=== PATIENT | female | born 1950 | race Caucasian/White ===

== ENCOUNTER 2016-10-20 04:25 | Emergency (ER) | payer OTHER, MEDICARE ==
[2016-10-20] MEDS ORDERED: IBUPROFEN 400 MG TABLET (FP) PO ONE ×2 (05:04→05:25)
[2016-10-20] MEDS ORDERED: predniSONE 20 MG TABLET (UD) PO ONE (05:04)
[2016-10-20] MEDS ORDERED: OXYCODONE/APAP 5/325MG COMBO TABLET PO ONE (05:04)
[2016-10-20] MEDS ORDERED: OXYCODONE/APAP 5/325MG COMBO TABLET ONE (05:25)
[2016-10-20] MEDS ORDERED: predniSONE 20 MG TABLET (UD) ONE (05:25)
[2016-10-20 05:55] VITALS: BP 175/73; PULSE 75; TEMP 98.7; BMI 27.3
--- NOTE | 2016-10-20 05:55 | PDOC ---
History of Present Illness - General Chief Complaint: Pain, Acute Stated Complaint: PAIN/RT HAND Time Seen by Provider: 10/20/16 04:44 History Source: Patient, Spouse Exam Limitations: No Limitations - History of Present Illness Initial Comments: 10/20/16 05:05 66yo Female patient presents to ED c/o atraumatic right hand pain/swelling which began yesterday. Patient reports similar symptoms in the past but not as severe. She denies CP, Abd pain, n/v/d, diff breathing, trauma, fall, injury, or any other complaints at this time. Occurred: reports: yesterday Severity: reports: moderate Upper Extremity Pain Location: right: wrist Method of Injury: reports: other (atraumatic) Modifying Factors: improves with: pain medication (Minimal relief.) Associated Symptoms: Decreased ROM Extremity Pain Location - Extremity Pain Location Extremity Pain Locations: right: hand Past History - Travel Traveled outside of the country in the last 30 days: No Close contact w/someone who was outside of country & ill: No - Past Medical History Allergies/Adverse Reactions: Allergies Allergy/AdvReac Type Severity Reaction Status Date / Time levofloxacin [From Levaquin] Allergy Mild Rash Verified 10/20/16 04:42 Penicillins Allergy Mild Rash Verified 10/20/16 04:42 Home Medications: Ambulatory Orders Glimepiride 4 mg PO BIDAC 02/20/14 Lovastatin 20 mg PO HS 02/20/14 Metformin HCl [Glucophage] 1,000 mg PO BIDAC 02/20/14 Acetaminophen [Tylenol .Regular Strength -] 650 mg PO Q6H PRN #0 tablet Amlodipine Besylate 5 mg PO HS 09/20/15 Insulin Detemir [Levemir Flextouch] 16 units SQ ACBK 09/20/15 Ibuprofen [Motrin -] 600 mg PO Q6H PRN #30 tablet 10/20/16 Oxycodone HCl/Acetaminophen [Percocet 5-325 mg Tablet] 1 tab PO Q6H PRN #12 tablet MDD 4 tabs 10/20/16 Prednisone [Deltasone -] 20 mg PO DAILY #4 tablet 10/20/16 Diabetes: Yes HTN: Yes Hypercholesterolemia: Yes Suicide Attempt (Hx): No Thyroid Disease: No - Immunization History Immunization Up to Date: Yes - Psycho/Social/Smoking Cessation Hx Anxiety: No Suicidal Ideation: No Smoking Status: No Smoking History: Never smoked Have you smoked in the past 12 months: No Number of Cigarettes Smoked Daily: 0 Hx Alcohol Use: No Drug/Substance Use Hx: No Substance Use Type: None Hx Substance Use Treatment: No Review of Systems - Review of Systems Able to Perform ROS?: Yes Is the patient limited Belarusian proficient: No Constitutional: No: Chills, Fever HEENTM: No: Blurred Vision, Double Vision Respiratory: No: Cough, Orthopnea, Shortness of Breath, SOB with Exertion Cardiac (ROS): No: Chest Pain, Edema, Palpitations ABD/GI: No: Constipated, Diarrhea, Nausea, Vomiting : No: Burning, Flank Pain, Hematuria Musculoskeletal: Yes: Joint Pain, Joint Swelling, Joint Stiffness. No: Back Pain, Muscle Pain, Muscle Weakness Integumentary: No: Bruising, Rash Neurological: No: Headache, Numbness, Seizure, Tingling, Tremors, Weakness, Ataxia Psychiatric: No: Anxiety, Depression All Other Systems: Reviewed and Negative *Physical Exam - Vital Signs Last Vital Signs Temp Pulse Resp BP Pulse Ox 98.7 F 75 18 175/73 100 10/20/16 04:44 10/20/16 04:44 10/20/16 04:44 10/20/16 04:44 10/20/16 04:44 - Physical Exam General Appearance: Yes: Nourished, Appropriately Dressed, Apparent Distress, Moderate Distress Neck: positive: Trachea midline, Supple Respiratory/Chest: positive: Lungs Clear, Normal Breath Sounds Cardiovascular: positive: Regular Rhythm, Regular Rate Lymphatic: negative: Adenopathy Musculoskeletal: positive: Normal Inspection. negative: CVA Tenderness Extremity: positive: Normal Capillary Refill, Other (Rt wrist/hand swelling and pain with decreased ROM. 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 intact, Fully Oriented, Alert, Normal Mood/ Affect, Normal Response *DC/Admit/Observation/Transfer Diagnosis at time of Disposition: Osteoarth NOS-up/arm - Discharge Dispostion Disposition: HOME Condition at time of disposition: Good Admit: No - Prescriptions Prescriptions: Prednisone [Deltasone -] 20 mg PO DAILY #4 tablet Ibuprofen [Motrin -] 600 mg PO Q6H PRN #30 tablet PRN Reason: Mild Pain Oxycodone HCl/Acetaminophen [Percocet 5-325 mg Tablet] 1 tab PO Q6H PRN #12 tablet MDD 4 tabs PRN Reason: Severe Pain - Referrals Referrals: Mago Buchanan MD [Primary Care Provider] - Juan Murphy MD [Staff Physician] - - Patient Instructions Printed Discharge Instructions: DI for Osteoarthritis Additional Instructions: FOLLOW UP WITH DR. MURPHY (ORTHOPEDIC). CALL TO SCHEDULE APPOINTMENT. TAKE MEDICATIONS PRESCRIBED. DO NOT DRIVE, DRINK ALCOHOL, OR OPERATE HEAVY MACHINERY WHILE TAKING PERCOCET. APPLY COLD COMPRESS TO AFFECTED AREA NEEDED. KEEP ARM IN SLING WHILE OUT OF BED TO DECREASE SWELLING. RETURN IF ANY CONCERNS FOR FURTHER EVALUATION. Print Language: SOUTH SUDANESE
== END 2016-10-20 05:43 | disposition home or self-care (01) ==
LOC: JER 04:25
DX: M19.031 Primary osteoarthritis, right wrist (principal)
CPT/HCPCS: 99281-25

== ENCOUNTER 2017-05-27 08:02 | Emergency (ER) | payer OTHER, MEDICARE ==
[2017-05-27 08:06] VITALS: BMI 28.3
--- NOTE | 2017-05-27 08:10 | PDOC ---
History of Present Illness - General Chief Complaint: Pain Stated Complaint: PAIN Time Seen by Provider: 05/27/17 08:09 - History of Present Illness Initial Comments: 05/27/17 08:10 66 yo female with history of chronic back pain, DM, HTN, DLP and vertigo presenting with 2 days of bilateral non radiating neck pain. Pain started in the middle of the day and was not provoked with any activity, has been getting worse, not relieved with tylenol or advil. Pain Management: Dr. Tin Gimenez ([phone]) Past History - Past Medical History Allergies/Adverse Reactions: Allergies Allergy/AdvReac Type Severity Reaction Status Date / Time levofloxacin [From Levaquin] Allergy Mild Rash Verified 05/27/17 08:06 Penicillins Allergy Mild Rash Verified 05/27/17 08:06 Home Medications: Ambulatory Orders Atorvastatin Ca [Lipitor] 10 mg PO HS 05/27/17 Canagliflozin [Invokana] 100 mg PO DAILY 05/27/17 Diazepam [Valium] 5 mg PO Q8H PRN #12 tablet MDD 20 05/27/17 Glimepiride [Amaryl -] 4 mg PO DAILY 05/27/17 Ibuprofen [Motrin -] 600 mg PO TID PRN #21 tablet 05/27/17 Insulin Lispro Protamin/Lispro [Humalog Mix 75-25 Kwikpen] 100 unit SQ BID 05/27 Metformin HCl [Glucophage] 1,000 mg PO BID 05/27/17 Valsartan/Hydrochlorothiazide [Valsartan-Hctz 160-25 mg Tab] 1 tab PO DAILY Diabetes: Yes HTN: Yes Hypercholesterolemia: Yes Suicide Attempt (Hx): No Thyroid Disease: No - Immunization History Immunization Up to Date: Yes - Psycho/Social/Smoking Cessation Hx Anxiety: No Suicidal Ideation: No Smoking Status: No Smoking History: Never smoked Have you smoked in the past 12 months: No Number of Cigarettes Smoked Daily: 0 Information on smoking cessation initiated: No Hx Alcohol Use: No Drug/Substance Use Hx: No Substance Use Type: None Hx Substance Use Treatment: No Review of Systems - Review of Systems Able to Perform ROS?: Yes Is the patient limited Hong Konger proficient: No Constitutional: No: Chills, Fever HEENTM: No: Eye Pain, Recent change in vision, Ear Pain, Hearing Loss Respiratory: No: Cough, Shortness of Breath Cardiac (ROS): No: Chest Pain, Palpitations ABD/GI: No: Constipated, Diarrhea, Nausea, Vomiting : No: Burning, Dysuria Musculoskeletal: Yes: Back Pain (chronic), Muscle Pain (Neck and shoulders), Neck Pain (w/o radiation) Neurological: No: Tingling *Physical Exam - Vital Signs Last Vital Signs Temp Pulse Resp BP Pulse Ox 98.8 F 87 18 160/72 99 05/27/17 08:03 05/27/17 08:03 05/27/17 08:03 05/27/17 08:03 05/27/17 08:03 - Physical Exam General Appearance: Yes: Nourished, Appropriately Dressed. No: Apparent Distress HEENT: positive: EOMI, MICHELA, Normal ENT Inspection Neck: positive: Tender (b/l posterior muscle tenderness from occiput down superior trapezuis), Rigid, Decreased range of motion (B/L Limited ROM, to left > to right), Tender lateral. negative: Lymphadenopathy (R), Lymphadenopathy (L) , Tender midline Respiratory/Chest: positive: Lungs Clear, Normal Breath Sounds. negative: Respiratory Distress Cardiovascular: positive: Regular Rhythm, Regular Rate, Systolic Murmur (2/6) Gastrointestinal/Abdominal: positive: Soft. negative: Tender, Distended, Guarding, Rebound Musculoskeletal: positive: Decreased Range of Motion (lateral neck mobility). 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 negative: Numbness, Sensory Deficit Medical Decision Making - Medical Decision Making 05/27/17 08:10 66 year old female with history of chronic back pain who is followed by a pain specialist presenting with two days of neck pain most consistent with muscle strain/spasm. 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 Gimenez who approved giving the patient toradol and Valium. His initial recommendation was flexaril but was not opposed to Valium or any other muscle relaxer. He is currently out of town but asked for the patient to call his office and make an appointment for Monday and supported a short prescription for PRN Valium. 05/27/17 08:57 Patient feeling some relief. Discharged to home with agreed followup with Dr. Gimenez on Monday *DC/Admit/Observation/Transfer Diagnosis at time of Disposition: Muscle strain - Discharge Dispostion Disposition: HOME Condition at time of disposition: Improved Admit: No - Prescriptions Prescriptions: Ibuprofen [Motrin -] 600 mg PO TID PRN #21 tablet PRN Reason: Pain Diazepam [Valium] 5 mg PO Q8H PRN #12 tablet MDD 20 PRN Reason: Pain - Referrals Referrals: Mago Buchanan MD [Primary Care Provider] - - Patient Instructions Printed Discharge Instructions: Muscle Strain Additional Instructions: Thank you for trusting us with your health care today. I hope you were happy with the care we provided. Your neck pain seems most consistent with muscle strain. Sometimes our muscles get strained even when we are unaware of an inciting incident. Often time the pain can be relieved with the use of over the counter pain medications. The use of lotions and patches that supply constant heat or Menthol are often effective as well. I have sent a prescriptions to your pharmacy that you can use until you are able to see your pain specialist next Monday. Be sure to take this and all medication as directed. It should only be taken if you are having pain. Do not drink alcohol while you are taking the Valium. In addition, you should not drive or operate heavy machinery while taking this medication as it may make you drowsy. As we discussed, you need to call Dr. Gimenez's office and make an appointment. Mention you were seen in the emergency department and they will be able to see you on Monday. You should also follow up with your PCP. If you should start to experience worsening pain that is not relieved with medication or start to experience any new of concerning symptoms, please return to the emergency department immediately. - Post Discharge Activity - Attestations Physician Attestion: 05/27/17 10:42 I, Dr. Dany Saavedra, attest that this document has been prepared under my direction and personally reviewed by me in its entirety. I further attest, that it accurately reflects all work, treatment, procedures and medical decision -making performed by me.
[2017-05-27] MEDS ORDERED: diazePAM 5 MG TABLET PO ONE (08:35)
[2017-05-27] MEDS ORDERED: KETOROLAC TROMETHAMINE 30 MG/1 ML VIAL IM ONE (08:35)
[2017-05-27] MEDS ORDERED: diazePAM 5 MG TABLET ONE (08:43)
[2017-05-27] MEDS ORDERED: KETOROLAC TROMETHAMINE 30 MG/1 ML VIAL ONE (08:44)
--- NOTE | 2017-05-27 09:09 | PDOC ---
Attending Attestation - Resident Resident Name: Dany Saavedra - ED Attending Attestation I have performed the following: I have examined & evaluated the patient, The case was reviewed & discussed with the resident, I agree w/resident's findings & plan, Exceptions are as noted - HPI HPI: 05/27/17 09:07 66 yo F w h/o DM , chronic back pain followed by dr. eduardo, here today with c/o upper neck pain. pain worse with head movement. no focal weakness or numbness. no trauma. has had for 2 days. no f/c no other complaints. no headache. - Physicial Exam PE: 05/27/17 09:08 awake alert lungs clear hear rrr no mrg.abd soft NT ND. neck no mildline cervical spine tendernss. pos paraspinal spasm and tenderness along trapezium, uper ext strength 5/5. med/ ulnar and rad. n. intact sensation intact. - Medical Decision Making 05/27/17 09:08 66 yo F neck strain/ spasm. normal nuero exam. plan nsaids and muscle relaxer.
[2017-05-27 11:06] VITALS: BP 155/74; PULSE 78; TEMP 98.6
== END 2017-05-27 11:03 | disposition home or self-care (01) ==
LOC: JER 08:02
PROC: 3E0233Z Introduction of Anti-inflammatory into Muscle, Percutaneous Approach (ICD-10-PCS; principal; 2017-05-27)
DX: S16.1XXA Strain of muscle, fascia and tendon at neck level, initial encounter (principal); I10 Essential (primary) hypertension; E11.9 Type 2 diabetes mellitus without complications; Z79.4 Long term (current) use of insulin; Z79.84 Long term (current) use of oral hypoglycemic drugs; E78.00 Pure hypercholesterolemia, unspecified; X58.XXXA Exposure to other specified factors, initial encounter; Y93.89 Activity, other specified
CPT/HCPCS: 96372; 99282-25

== ENCOUNTER 2017-07-26 18:05 | Emergency (ER) | payer OTHER, MEDICARE ==
[2017-07-26 18:22] VITALS: BMI 26.8
[2017-07-26] MEDS ORDERED: KETOROLAC TROMETHAMINE 60 MG/2 ML VIAL IM ONE (21:58)
[2017-07-26] MEDS ORDERED: diazePAM 5 MG TABLET PO ONE (21:58)
[2017-07-26] MEDS ORDERED: KETOROLAC TROMETHAMINE 60 MG/2 ML VIAL ONE (22:02)
[2017-07-26] MEDS ORDERED: diazePAM 5 MG TABLET ONE (22:03)
--- NOTE | 2017-07-26 23:06 | PDOC ---
History of Present Illness - General Chief Complaint: Pain Stated Complaint: PAIN Time Seen by Provider: 07/26/17 21:25 - History of Present Illness Initial Comments: 07/26/17 21:00 CHIEF COMPLAINT: neck pain HISTORY OF PRESENT ILLNESS: 67 yo F with PMH of DM, chronic back pain (seen by pain mgmt Dr. Lucas), presents today with neck discomfort, worse with lateral head movement. She denies any weakness or numbness, denies trauma or injury. She reports having this pain for "the last few days." She denies any loss of sensation, vertigo, headache, dizziness, chest pain, shortness of breath. No recent travel or sick contacts. PAST MEDICAL HISTORY: as per HPI FAMILY HISTORY: Denies SOCIAL HISTORY: Denies tobacco, alcohol, illicit drug use. ALLERGIES: Levofloxacin, PCN REVIEW OF SYSTEMS General/Constitutional: Denies fever or chills. Denies weakness. HEENT: Denies change in vision. Cardiovascular: Denies chest pain or shortness of breath. Respiratory: Denies cough, wheezing, or hemoptysis. Gastrointestinal: Denies nausea, vomiting, diarrhea. Genitourinary: Denies dysuria, frequency, or change in urination. Musculoskeletal: Neck pain, worsened with movement. Chronic lower back pain. Neurological: No loss of sensation, no headache, dizziness, vertigo, blurry vision. PHYSICAL EXAM General Appearance: Well-appearing, appropriately dressed. No apparent distress. HEENT: EOMI, PERRLA, normal ENT inspection, normal voice, TMs normal, pharynx normal. No conjunctival pallor. No photophobia, scleral icterus. Neck: No midline tenderness to servical spine. Reproducible tenderness to paraspinal muscles and left trapezius. Supple. rachea midline. No rigidity, carotid bruit, stridor, lymphadenopathy, or thyromegaly. Respiratory/Chest: Lungs CTAB. Cardiovascular: RRR. S1, S2. Gastrointestinal/Abdominal: Normal bowel sounds. Abdomen soft, non-distended. No tenderness or rebound tenderness. No organomegaly, pulsatile mass, guarding , hernia, hepatomegaly, splenomegaly. Musculoskeletal/Extremities: See neck. No midline tenderness to thoracic or lumbar spine. Sensory discrimination intact. FROM of all extremities, normal capillary refill. Pelvis Stable. No CVA tenderness. Integumentary: Appropriate color, dry, warm. 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 Fully oriented, alert. Appropriate mood/affect. Motor strength 5/5. No appreciable EOM palsy, facial droop or sensory deficit. Past History - Past Medical History Allergies/Adverse Reactions: Allergies Allergy/AdvReac Type Severity Reaction Status Date / Time levofloxacin [From Levaquin] Allergy Mild Rash Verified 07/26/17 18:22 Penicillins Allergy Mild Rash Verified 07/26/17 18:22 Home Medications: Ambulatory Orders Atorvastatin Ca [Lipitor] 10 mg PO HS 05/27/17 Canagliflozin [Invokana] 100 mg PO DAILY 05/27/17 Diazepam [Valium] 5 mg PO Q8H PRN #12 tablet MDD 20 05/27/17 Glimepiride [Amaryl -] 4 mg PO DAILY 05/27/17 Insulin Lispro Protamin/Lispro [Humalog Mix 75-25 Kwikpen] 100 unit SQ BID 05/27 Metformin HCl [Glucophage] 1,000 mg PO BID 05/27/17 Valsartan/Hydrochlorothiazide [Valsartan-Hctz 160-25 mg Tab] 1 tab PO DAILY Cyclobenzaprine HCl 5 mg PO HS #7 tablet 07/26/17 Diabetes: Yes HTN: Yes Hypercholesterolemia: Yes Thyroid Disease: No - Immunization History Immunization Up to Date: Yes - Suicide/Smoking/Psychosocial Hx Smoking Status: No Smoking History: Never smoked Have you smoked in the past 12 months: No Number of Cigarettes Smoked Daily: 0 Hx Alcohol Use: No Drug/Substance Use Hx: No Substance Use Type: None Hx Substance Use Treatment: No *Physical Exam - Vital Signs Last Vital Signs Temp Pulse Resp BP Pulse Ox 99.2 F 97 H 20 155/94 98 07/26/17 18:19 07/26/17 18:19 07/26/17 18:19 07/26/17 18:19 07/26/17 18:19 ED Treatment Course - Medications Given in the ED: ED Medications Discontinued Medications Generic Name Dose Route Start Last Admin Trade Name Freq PRN Reason Stop Dose Admin Diazepam 5 mg 07/26/17 21:58 07/26/17 22:09 Valium - PO 07/26/17 21:59 5 mg ONCE ONE Administration Ketorolac Tromethamine 60 mg 07/26/17 21:58 07/26/17 22:08 Toradol Injection - IM 07/26/17 21:59 60 mg ONCE ONE Administration Medical Decision Making - Medical Decision Making 07/26/17 23:39 67 yo F with PMH of DM, chronic back pain (seen by pain mgmt Dr. Lucas), presents today with neck discomfort, worse with lateral head movement. -60 mg Toradol Im -Valium Patient reassessed; states she is feeling "a little" better "but not really." However patient reports she wants to go home at this time and states she will follow up with neuro MD Andrews and orthopedics. Patient reports she just saw Dr. Andrews this week and had an MRI done of her lumbar spine this morning but has not received the results. Advised patient to take medications as prescribed and to f/u with neuro and ortho by the end of the week. Patient verbalized understandinga nd agrees to plan. *DC/Admit/Observation/Transfer Diagnosis at time of Disposition: Muscle strain - Discharge Dispostion Disposition: HOME Condition at time of disposition: Stable Admit: No (I, likely clear 1) - Prescriptions Prescriptions: Cyclobenzaprine HCl 5 mg PO HS #7 tablet - Referrals Referrals: Mago Buchanan MD [Primary Care Provider] - - Patient Instructions Printed Discharge Instructions: DI for Cervical Muscle Strain Additional Instructions: Please take medications as prescribed. As discussed, please continue following up with Dr. Andrews and see Dr. Murphy by the end of the week for further evaluation of your chronic neck pain. If you develop ANY headache, dizziness, blurry vision, shortness of breath, difficulty breathing, or any new or worsening symptoms, please return to the ER immediately.
[2017-07-26 23:21] VITALS: BP 98/73; PULSE 87; TEMP 98.9
== END 2017-07-26 23:44 | disposition home or self-care (01) ==
LOC: JER 18:05
PROC: 3E0233Z Introduction of Anti-inflammatory into Muscle, Percutaneous Approach (ICD-10-PCS; principal; 2017-07-26)
DX: S16.1XXA Strain of muscle, fascia and tendon at neck level, initial encounter (principal); M54.5 Low back pain; G89.29 Other chronic pain; I10 Essential (primary) hypertension; E11.9 Type 2 diabetes mellitus without complications; Z79.4 Long term (current) use of insulin; Z79.84 Long term (current) use of oral hypoglycemic drugs; E78.00 Pure hypercholesterolemia, unspecified; X58.XXXA Exposure to other specified factors, initial encounter; Y93.89 Activity, other specified; Y92.89 Other specified places as the place of occurrence of the external cause; Y99.8 Other external cause status
CPT/HCPCS: 99281-25

== ENCOUNTER 2017-10-10 14:45 | Emergency (ER) | payer OTHER, MEDICARE ==
[2017-10-10 14:51] VITALS: BP 142/59; PULSE 85; TEMP 99.8; BMI 29.5
--- NOTE | 2017-10-10 14:52 | PDOC ---
Rapid Medical Evaluation Time Seen by Provider: 10/10/17 14:47 Medical Evaluation: Allergies Allergy/AdvReac Type Severity Reaction Status Date / Time levofloxacin [From Levaquin] Allergy Mild Rash Verified 07/26/17 18:22 Penicillins Allergy Mild Rash Verified 07/26/17 18:22 10/10/17 14:50 I have performed a brief in-person evaluation of this patient. The patient presents with a chief complaint of: Recurrent head and neck pain since yesterday. No trauma. H/o DM, HTN, HLD Pertinent physical exam findings:Stable w/ tenderness over R sternocleidomastoid I have ordered the following:nothing The patient will proceed to the ED for further evaluation. Discharge Disposition - Referrals Referrals: Mago Buchanan MD [Primary Care Provider] - - Patient Instructions - Post Discharge Activity
[2017-10-10] MEDS ORDERED: KETOROLAC TROMETHAMINE 30 MG/1 ML VIAL IM ONE (16:27)
[2017-10-10] MEDS ORDERED: KETOROLAC TROMETHAMINE 30 MG/1 ML VIAL ONE (16:30)
--- NOTE | 2017-10-10 16:37 | PDOC ---
History of Present Illness - General Chief Complaint: Pain Stated Complaint: PAIN Time Seen by Provider: 10/10/17 14:47 History Source: Patient - History of Present Illness Initial Comments: 10/10/17 16:29 This is 67-year-old woman with past medical history of hypertension and diabetes presents emergency Department with intermittent right sided neck pain for 6 months. Patient states she's been evaluated multiple times and is been given "a shot" and some Valium which helps relieve the pain a little. Patient states the pain today started abruptly approximately 2:30 AM. She denies any trauma. PMD: Dewayne PMH: Hypertension, diabetes PSH: Denies Past History - Past Medical History Allergies/Adverse Reactions: Allergies Allergy/AdvReac Type Severity Reaction Status Date / Time levofloxacin [From Levaquin] Allergy Mild Rash Verified 10/10/17 14:51 Penicillins Allergy Mild Rash Verified 10/10/17 14:51 Home Medications: Ambulatory Orders Atorvastatin Ca [Lipitor] 10 mg PO HS 05/27/17 Canagliflozin [Invokana] 100 mg PO DAILY 05/27/17 Diazepam [Valium] 5 mg PO Q8H PRN #12 tablet MDD 20 05/27/17 Glimepiride [Amaryl -] 4 mg PO DAILY 05/27/17 Insulin Lispro Protamin/Lispro [Humalog Mix 75-25 Kwikpen] 100 unit SQ BID 05/27 Metformin HCl [Glucophage] 1,000 mg PO BID 05/27/17 Valsartan/Hydrochlorothiazide [Valsartan-Hctz 160-25 mg Tab] 1 tab PO DAILY Cyclobenzaprine HCl 5 mg PO HS #7 tablet 07/26/17 Methocarbamol [Robaxin -] 500 mg PO BID PRN #14 tablet 10/10/17 COPD: No Diabetes: Yes HTN: Yes Hypercholesterolemia: Yes Thyroid Disease: No - Immunization History Immunization Up to Date: Yes - Suicide/Smoking/Psychosocial Hx Smoking Status: No Smoking History: Never smoked Have you smoked in the past 12 months: No Number of Cigarettes Smoked Daily: 0 Information on smoking cessation initiated: No Hx Alcohol Use: No Drug/Substance Use Hx: No Substance Use Type: None Hx Substance Use Treatment: No Review of Systems - Review of Systems Able to Perform ROS?: Yes Is the patient limited Ukrainian proficient: No Constitutional: No: Symptoms Reported HEENTM: Yes: See HPI Respiratory: No: Symptoms reported Cardiac (ROS): No: Symptoms Reported ABD/GI: No: Symptoms Reported : No: Symptoms Reported Musculoskeletal: No: Symptoms Reported Integumentary: No: Symptoms Reported Neurological: No: Symptoms reported *Physical Exam - Vital Signs Last Vital Signs Temp Pulse Resp BP Pulse Ox 99.8 F H 85 16 142/59 98 10/10/17 14:48 10/10/17 14:48 10/10/17 14:48 10/10/17 14:48 10/10/17 14:48 - Physical Exam General Appearance: Yes: Appropriately Dressed. No: Apparent Distress HEENT: positive: Other (TTP at insertion site of SCM on the right side. Palpable muscle spasms noted extending into next.) Neck: positive: Trachea midline Respiratory/Chest: positive: Lungs Clear, Normal Breath Sounds. negative: Respiratory Distress Cardiovascular: positive: Regular Rhythm, Regular Rate Gastrointestinal/Abdominal: positive: Normal Bowel Sounds, Soft. negative: Tender Musculoskeletal: positive: Normal Inspection. negative: CVA Tenderness Extremity: positive: Normal Capillary Refill Integumentary: positive: Normal Color, Dry, Warm Neurologic: positive: marine gear keeper II-XII NML intact, Fully Oriented, Alert, Normal Mood/ Affect, Normal Response, Motor Strength 5/5 Medical Decision Making - Medical Decision Making 10/10/17 16:32 A/P: This is 67-year-old woman with past medical history of hypertension and diabetes presents emergency Department with intermittent right sided neck pain for 6 months. Patient states she's been evaluated multiple times and is been given "a shot" and some Valium which helps relieve the pain a little. Patient states the pain today started abruptly approximately 2:30 AM. She denies any trauma. Patient with tenderness to palpation to the insertion point of the right sternocleidomastoid. Spasms are appreciated from the insertion point extending down the neck to the clavicle. There is no erythema to the area. No abscesses appreciated. Pain worsens with rotation to the right. Pain is relieved with left lateral rotation. Patient has full sensation in the extremities 4. Strength 5 out of 5 in all extremities. Cranial nerves II through XII intact. Diagnosis: Muscle spasm I will give the patient 30 mg of Toradol IM now. Vision is taken 5 mg of Valium prior to arrival with minimal relief I will hold further benzo treatment this patient is a 30 taken Valium. 10/10/17 18:14 Pain mildly improved. I will give the patient another 5 mg of Valium now. I'll give the patient a prescription for Robaxin until she can follow-up with Dr. Buchanan. *DC/Admit/Observation/Transfer Diagnosis at time of Disposition: Muscle strain - Discharge Dispostion Disposition: HOME Condition at time of disposition: Stable Admit: No - Prescriptions Prescriptions: Methocarbamol [Robaxin -] 500 mg PO BID PRN #14 tablet PRN Reason: Pain - Referrals Referrals: Mago Buchanan MD [Primary Care Provider] - - Patient Instructions Additional Instructions: Take Robaxin twice a day as needed for neck pain. Do not drink or drive while taking this medication. Make an appointment with Dr. Buchanan for further evaluation of this chronic issue. Use of warm moist heat may help alleviate some of the pain you're feeling. Return to emergency department for inability to turn head, confusion, dizziness , or any other concerns. Thank you very much for choosing us to provide your emergent healthcare needs. - Post Discharge Activity
[2017-10-10] MEDS ORDERED: diazePAM 5 MG TABLET PO ONE (18:16)
== END 2017-10-10 18:28 | disposition home or self-care (01) ==
LOC: JERFT 14:45
PROC: 3E0233Z Introduction of Anti-inflammatory into Muscle, Percutaneous Approach (ICD-10-PCS; principal; 2017-10-10)
DX: S16.1XXA Strain of muscle, fascia and tendon at neck level, initial encounter (principal); I10 Essential (primary) hypertension; E11.9 Type 2 diabetes mellitus without complications; Z79.4 Long term (current) use of insulin; Z79.84 Long term (current) use of oral hypoglycemic drugs; E78.00 Pure hypercholesterolemia, unspecified; X58.XXXA Exposure to other specified factors, initial encounter; Y93.89 Activity, other specified; Y92.89 Other specified places as the place of occurrence of the external cause; Y99.8 Other external cause status
CPT/HCPCS: 96372; 99281-25

== ENCOUNTER 2017-10-12 01:56 | Emergency (ER) | payer OTHER, MEDICARE ==
[2017-10-12 02:32] VITALS: BP 143/76; PULSE 79; TEMP 98.6; BMI 29.0
--- NOTE | 2017-10-12 03:20 | PDOC ---
History of Present Illness - History of Present Illness Initial Comments: 10/12/17 03:33 The patient is a 67 year old female, with a significant past medical history of DM, chronic back pain (seen by pain mgmt Dr. Lucas), who presents to the emergency department with persistent posterior head and neck pain since being seen in the ED on Monday for similar complaint. The patient reportedly came into the ED on Monday for posterior head pain and neck pain, was discharged on robaxin, and while in the ED, the patient was given toradol IM. The patient also reportedly took 5mg valium in the ED on Monday without relief. She states neither the Toradol nor robaxin helped with her pain and she returns with the same pain. She states she took another dose of robaxin Monday evening without relief. She denies recent travels or sick contacts. She denies any trauma. She denies chest pain, shortness of breath, and dizziness. She denies fever, chills, nausea, vomit, diarrhea and constipation. She denies dysuria, frequency , urgency and hematuria. Allergies: levofloxacin and penicillin <Christine Erwin - Last Filed: 10/12/17 06:00> - General History Source: Patient <SindiDiallo bella - Last Filed: 10/17/17 20:11> - General Chief Complaint: Headache Stated Complaint: HEAD PAIN,NAUSEA Time Seen by Provider: 10/12/17 03:16 Past History <Christine Erwin - Last Filed: 10/12/17 06:00> - Past Medical History COPD: No Diabetes: Yes HTN: Yes Hypercholesterolemia: Yes Thyroid Disease: No - Immunization History Immunization Up to Date: Yes - Suicide/Smoking/Psychosocial Hx Smoking Status: No Smoking History: Never smoked Have you smoked in the past 12 months: No Number of Cigarettes Smoked Daily: 0 Information on smoking cessation initiated: No Hx Alcohol Use: No Drug/Substance Use Hx: No Substance Use Type: None Hx Substance Use Treatment: No <Diallo Crooks - Last Filed: 10/17/17 20:11> - Past Medical History Allergies/Adverse Reactions: Allergies Allergy/AdvReac Type Severity Reaction Status Date / Time levofloxacin [From Levaquin] Allergy Mild Rash Verified 10/12/17 02:29 Penicillins Allergy Mild Rash Verified 10/12/17 02:29 Home Medications: Ambulatory Orders Atorvastatin Ca [Lipitor] 10 mg PO HS 05/27/17 Canagliflozin [Invokana] 100 mg PO DAILY 05/27/17 Diazepam [Valium] 5 mg PO Q8H PRN #12 tablet MDD 20 05/27/17 Glimepiride [Amaryl -] 4 mg PO DAILY 05/27/17 Insulin Lispro Protamin/Lispro [Humalog Mix 75-25 Kwikpen] 100 unit SQ BID 05/27 Metformin HCl [Glucophage] 1,000 mg PO BID 05/27/17 Valsartan/Hydrochlorothiazide [Valsartan-Hctz 160-25 mg Tab] 1 tab PO DAILY Cyclobenzaprine HCl 5 mg PO HS #7 tablet 07/26/17 Ibuprofen 800 mg PO TID #30 tablet 10/12/17 Oxycodone HCl/Acetaminophen [Percocet 5-325 mg Tablet] 1 - 2 tab PO Q6H #20 tablet MDD 4 10/12/17 Review of Systems - Review of Systems Able to Perform ROS?: Yes Comments:: 10/12/17 03:36 CONSTITUTIONAL: Absent: fever, chills, diaphoresis, generalized weakness, malaise, loss of appetite HEENT: (+) posterior head pain. Absent: rhinorrhea, nasal congestion, throat pain, throat swelling, difficulty swallowing, mouth swelling, ear pain, eye pain, visual Changes CARDIOVASCULAR: Absent: chest pain, syncope, palpitations, irregular heart rate, lightheadedness , peripheral edema RESPIRATORY: Absent: cough, shortness of breath, dyspnea with exertion, orthopnea, wheezing, stridor, hemoptysis GASTROINTESTINAL: Absent: abdominal pain, abdominal distension, nausea, vomiting, diarrhea, constipation, melena, hematochezia GENITOURINARY: Absent: dysuria, frequency, urgency, hesitancy, hematuria, flank pain, genital pain MUSCULOSKELETAL: (+) neck pain. Absent: arthralgia, joint swelling SKIN: Absent: rash, itching, pallor HEMATOLOGIC/IMMUNOLOGIC: Absent: easy bleeding, easy bruising, lymphadenopathy, frequent infections ENDOCRINE: Absent: unexplained weight gain, unexplained weight loss, heat intolerance, cold intolerance NEUROLOGIC: Absent: headache, focal weakness or paresthesias, dizziness, unsteady gait, seizure, mental status changes, bladder or bowel incontinence PSYCHIATRIC: Absent: anxiety, depression, suicidal or homicidal ideation, hallucinations. <Christine Erwin - Last Filed: 10/12/17 06:00> *Physical Exam - Vital Signs Last Vital Signs Temp Pulse Resp BP Pulse Ox 98.6 F 79 14 143/76 98 10/12/17 02:29 10/12/17 02:29 10/12/17 02:29 10/12/17 02:29 10/12/17 02:29 - Physical Exam Comments: 10/12/17 03:37 GENERAL: Well developed, well nourished. Awake and alert. No acute distress. HEENT: Normocephalic, atraumatic. PERRLA, EOMI. No conjunctival pallor. Sclera are non- icteric. Moist mucous membranes. Oropharynx is clear. NECK: (+) moderate amount of cervical muscle spasm R>L, No raccoon or das signs. Supple. Full ROM. No JVD. Carotid pulses 2+ and symmetric, without bruits. No thyromegaly. No lymphadenopathy. CARDIOVASCULAR: Regular rate and rhythm. No murmurs, rubs, or gallops. Distal pulses are 2+ and symmetric. PULMONARY: No evidence of respiratory distress. Lungs clear to auscultation bilaterally. No wheezing, rales or rhonchi. ABDOMINAL: Soft. Non-tender. Non-distended. No rebound or guarding. No organomegaly. Normoactive bowel sounds. MUSCULOSKELETAL (+) moderate amount of cervical muscle spasm R>L. Normal range of motion at all joints. No bony deformities. No CVA tenderness. EXTREMITIES: No cyanosis. No clubbing. No edema. No calf tenderness. SKIN: Warm and dry. Normal capillary refill. No rashes. No jaundice. NEUROLOGICAL: Alert, awake, appropriate. Cranial nerves 2-12 intact. Normoreflexic in the upper and lower extremities. Normal speech. Toes are down-going bilaterally. Gait is normal without ataxia. PSYCHIATRIC: Cooperative. Good eye contact. Appropriate mood and affect. <Christine Erwin - Last Filed: 10/12/17 06:00> - Vital Signs Last Vital Signs Temp Pulse Resp BP Pulse Ox 98.6 F 79 14 143/76 98 10/12/17 02:29 10/12/17 02:29 10/12/17 02:29 10/12/17 02:29 10/12/17 02:29 <Diallo Crooks - Last Filed: 10/17/17 20:11> ED Treatment Course - RADIOLOGY Radiograph Interpretation: EXAM: CT CERVICAL SPINE without contrast HISTORY: Cervical spine pain COMPARISON: None. FINDINGS: Vertebral bodies appear normal with no fracture There is some reversal of the normal lordotic curvature centered at the level of C4-C7. There is a posterior osteophyte and bony bar at the level of C5-C6 Airway is intact Soft Tissues are normal Pulmonary apices are normal IMPRESSION: Degenerative changes in the cervical spine with no fracture Andrews Simpson MD 10/12/2017 05:25 EST EXAM: CT HEAD without contrast HISTORY: Dizziness COMPARISON: None. TECHNIQUE: CT Head with serial axial images extending from the vertex to the base of skull was performed without vascular contrast. FINDINGS: Brain parenchyma is normal in attenuation with no mass or hematoma. There is no midline shift. Goldberg and white matter differentiation is normal. There is some lucency in the periventricular white matter Ventricles are mildly prominent. Sulci and extra-axial CSF spaces are mildly prominent. Intracranial vascular structures are normal in attenuation. There is no calvarial fracture. Paranasal sinuses are normally aerated. There is a mucous retention cyst in the right maxillarysinus IMPRESSION: No intracranial mass or bleed, Chronic appearing involutional changes of aging Andrews Simpson MD 10/12/2017 05:23 EST <Christine Erwin - Last Filed: 10/12/17 06:00> Medical Decision Making - Medical Decision Making 10/17/17 20:11 Dr. Crooks: The scribe's documentation has been prepared under my direction and personally reviewed by me in its entirery. I confirm that the note above accurately reflects all work, treatment, procedures, and medical decision making performed by me. <Diallo Crooks - Last Filed: 10/17/17 20:11> *DC/Admit/Observation/Transfer - Attestations Scribe Attestion: 10/12/17 03:38 Documentation prepared by Christine Erwin, acting as medical program specialist for Diallo Crooks DO <Christine Erwin - Last Filed: 10/12/17 06:00> - Discharge Dispostion Admit: No <Diallo Crooks - Last Filed: 10/17/17 20:11> Diagnosis at time of Disposition: Muscle strain, Cervical sprain - Discharge Dispostion Disposition: HOME Condition at time of disposition: Stable - Prescriptions Prescriptions: Ibuprofen 800 mg PO TID #30 tablet Oxycodone HCl/Acetaminophen [Percocet 5-325 mg Tablet] 1 - 2 tab PO Q6H #20 tablet MDD 4 - Patient Instructions Printed Discharge Instructions: DI for Neck Pain Additional Instructions: Please follow up with your doctor for MRI to be scheduled. Avoid alcohol when taking Percocet. Return if any problems.
[2017-10-12] MEDS ORDERED: morphine CARPU-JECT 2 MG/1 ML DISP.SYRIN IM ONE (03:28)
[2017-10-12] MEDS ORDERED: ONDANSETRON *ODT* 4 MG TABLET SL ONE (03:28)
[2017-10-12] MEDS ORDERED: ONDANSETRON *ODT* 4 MG TABLET ONE (03:40)
[2017-10-12] MEDS ORDERED: morphine CARPU-JECT 10 MG/1 ML DISP.SYRIN ONE (03:41)
== END 2017-10-12 06:13 | disposition home or self-care (01) ==
LOC: JER 01:56
PROC: 3E023NZ Introduction of Analgesics, Hypnotics, Sedatives into Muscle, Percutaneous Approach (ICD-10-PCS; principal; 2017-10-12)
DX: S16.1XXA Strain of muscle, fascia and tendon at neck level, initial encounter (principal); M62.838 Other muscle spasm; I10 Essential (primary) hypertension; E11.9 Type 2 diabetes mellitus without complications; Z79.4 Long term (current) use of insulin; Z79.84 Long term (current) use of oral hypoglycemic drugs; E78.00 Pure hypercholesterolemia, unspecified
CPT/HCPCS: 70450-TC; 72125-TC; 99281-25; 99282-25

== ENCOUNTER 2018-06-04 07:05 | Emergency (ER) | payer OTHER, MEDICARE ==
[2018-06-04 07:13] VITALS: BMI 31.1
[2018-06-04] MEDS ORDERED: IBUPROFEN 600 MG TABLET (FP) PO ONE ×2 (08:41→08:46)
--- NOTE | 2018-06-04 08:41 | PDOC ---
History of Present Illness - History of Present Illness Initial Comments: The patient is a 67 year old female, with a significant past medical history of DM, HTN, chronic back pain, who presents to the emergency department with LLE pain since last night when trying to go to bed. She states that her pain begins at her left mid- thigh and radiates down to her knee. She states that she has had leg pain in the past but this is different. She describes it more as a crampy, constant, uncomfortable. She states that around 5 years ago she saw Dr. Murphy in the past who told her she will need hip replacement surgery (L worse than R) but due to change in insurance she was not able to schedule and see the surgery through. She states that the pain kept her up all night as she was not able to find a comfortable position to lay down. She states that she took 2 advil at 3 am with no relief. Denies recent injury. Denies any head or neck pain. Denies recent changes in meds or hospitalizations. PCP: Brdiget Buchanan Pain management doctor: Dr. Lucas. Surgical Hx: denies <Marisa Larson - Last Filed: 06/04/18 12:42> - General History Source: Patient Exam Limitations: No Limitations <Lyudmila Acosta - Last Filed: 06/04/18 13:02> - General Chief Complaint: Pain Stated Complaint: LEFT LEG PAIN Time Seen by Provider: 06/04/18 08:02 Past History <Marisa Larson - Last Filed: 06/04/18 12:42> - Past Medical History COPD: No DVT: No Diabetes: Yes HTN: Yes Hypercholesterolemia: Yes Thyroid Disease: No - Immunization History Immunization Up to Date: Yes - Suicide/Smoking/Psychosocial Hx Smoking Status: No Smoking History: Never smoked Have you smoked in the past 12 months: No Number of Cigarettes Smoked Daily: 0 Information on smoking cessation initiated: No Hx Alcohol Use: No Drug/Substance Use Hx: No Substance Use Type: None Hx Substance Use Treatment: No <Lyudmila Acosta - Last Filed: 06/04/18 13:02> - Past Medical History Allergies/Adverse Reactions: Allergies Allergy/AdvReac Type Severity Reaction Status Date / Time levofloxacin [From Levaquin] Allergy Mild Rash Verified 06/04/18 07:11 Penicillins Allergy Mild Rash Verified 06/04/18 07:11 Home Medications: Ambulatory Orders Atorvastatin Ca [Lipitor] 10 mg PO HS 05/27/17 Canagliflozin [Invokana] 100 mg PO DAILY 05/27/17 Diazepam [Valium] 5 mg PO Q8H PRN #12 tablet MDD 20 05/27/17 Glimepiride [Amaryl -] 4 mg PO DAILY 05/27/17 Insulin Lispro Protamin/Lispro [Humalog Mix 75-25 Kwikpen] 100 unit SQ BID 05/27 Metformin HCl [Glucophage] 1,000 mg PO BID 05/27/17 Valsartan/Hydrochlorothiazide [Valsartan-Hctz 160-25 mg Tab] 1 tab PO DAILY Ibuprofen 800 mg PO TID #30 tablet 10/12/17 Acetaminophen W/ Codeine #3 [Tylenol # 3 -] 1 tab PO BID PRN #10 tablet MDD 2 Lidocaine 5% Patch [Lidoderm Patch -] 1 patch TP DAILY PRN #30 patch 06/04/18 Methocarbamol [Robaxin -] 500 mg PO TID PRN #30 tablet 06/04/18 Review of Systems - Review of Systems Comments:: GENERAL/CONSTITUTIONAL: No: fever, chills, weakness, loss of appetite. HEAD, EYES, EARS, NOSE AND THROAT: No: change in vision, ear pain, discharge, sore throat, throat swelling. CARDIOVASCULAR: No: chest pain, lightheadedness, palpitations, syncope RESPIRATORY: No: cough, shortness of breath, wheezing, hemoptysis, stridor. GASTROINTESTINAL: No: nausea, vomiting, abdominal cramping, diarrhea, rectal bleeding, constipation. GENITOURINARY: No: dysuria, hematuria, frequency, urgency, flank pain. MUSCULOSKELETAL: +LLE pain from mid-thigh to knee. No: back pain, neck pain, muscle swelling. SKIN: No: lesions, pallor, rash or easy bruising. NEUROLOGIC: No: headache, vertigo, paresthesias, weakness ENDOCRINE: No: unexplained weight gain or loss HEMATOLOGIC/LYMPHATIC: No: anemia, easy bleeding, swelling nodes <Marisa Larson - Last Filed: 06/04/18 12:42> *Physical Exam - Vital Signs Last Vital Signs Temp Pulse Resp BP Pulse Ox 98.0 F 77 18 142/72 100 06/04/18 07:11 06/04/18 07:11 06/04/18 07:11 06/04/18 07:11 06/04/18 07:11 - Physical Exam Comments: GENERAL: The patient is in no acute distress. HEAD: Normal with no signs of trauma. EYES: PERRLA, EOMI, sclera anicteric, conjunctiva clear. ENT: Ears normal, nares patent, oropharynx clear without exudates. Moist mucous membranes. NECK: Normal range of motion, supple without lymphadenopathy, JVD, or masses. LUNGS: Breath sounds equal, clear to auscultation bilaterally. No wheezes, and no crackles. HEART:Regular rate and rhythm, normal S1 and S2 without murmur, rub or gallop. ABDOMEN: Soft, nontender, normoactive bowel sounds. No guarding, no rebound. BACK: No midline lumbar tenderness, no paraspinal lumbar tenderness. EXTREMITIES: Normal left hip, knee, ankle flexion. Thigh is soft, tenderness to palpation at mid-thigh. No edema. No clubbing or cyanosis. No erythema. NEUROLOGICAL: Cranial nerves II through XII grossly intact. Normal speech. No focal neurological deficits. MUSCULOSKELETAL: Back nontender to palpation, no CVA tenderness SKIN: Warm, Dry, normal turgor, no rashes or lesions noted. <Marisa Larson - Last Filed: 06/04/18 12:42> - Vital Signs Last Vital Signs Temp Pulse Resp BP Pulse Ox 98.0 F 77 18 142/72 100 06/04/18 07:11 06/04/18 07:11 06/04/18 07:11 06/04/18 07:11 06/04/18 07:11 <Lyudmila Acosta - Last Filed: 06/04/18 13:02> ED Treatment Course - RADIOLOGY Radiograph Interpretation: Hip/Pelvis X-ray Impression: Loss of bone density, Degenerative changes. Vascular calcification Chondrocalcinosis left knee. Reported By: Prabhakar Silva MD 06/04/1851 Femur x-ray Impression: No acute left femur pathology Reported By: Prabhakar Silva MD 06/04/1885 CT Lumbar Spine: Impression: Mild disc bulge and posterior spur formation as well as moderate bilateral facet hypertrophy at L2-L3, L3-L4 and L5-S1 level. Marked degenerative disc disease a L4-L5 level with grade 1 anterolisthesis of L4 over L5, approximately 12 mm and bilateral spondylolysis of the pars interarticularis. Mild broad-based disc bulge and significant bilateral facet and ligamentum hypertrophy resulting in moderately severe degenerative central spinal canal stenosis. Correlation with MRI of the lumbar spine would be helpful for further and better evaluation. Reported By: Anastasiya Causey MD 06/04/18 1233 - Medications Given in the ED: ED Medications Discontinued Medications Generic Name Dose Route Start Last Admin Trade Name Yisesl PRN Reason Stop Dose Admin Ibuprofen 600 mg 06/04/18 08:41 06/04/18 08:51 Motrin - PO 06/04/18 08:42 600 mg ONCE ONE Administration Methocarbamol 500 mg 06/04/18 08:53 06/04/18 08:51 Robaxin - PO 06/04/18 08:54 500 mg ONCE ONE Administration - Consult/PCP Time Called: 12:40 (Nathalyd Juan) <Marisa Larson - Last Filed: 06/04/18 12:42> Medical Decision Making - Medical Decision Making 06/04/18 09:16 Ms Mendez is a 67 yo F presenting to the ER with a complaint of left pain Symptoms began last night Pt unable to sleep due to pain Pt denies back pain No fevers or chills No trauma to the back or leg Pt has pain mostly in the thigh She reports a prior history of severe hip abnormality prompting Dr Murphy to say that patient should had hip replacement Pt has no pain on palpation of the midline spine Pt has not hip tenderness She is able to range at the hip and the knees her thigh is soft and not swollen No calf swelling noted Pt is ambulatory She states actually, her pain is present when she lays down will do: Pain medication - Motrin and robaxin Xrays Re assess 06/04/18 12:45 CT demonstrates Mild disc bulge and posterior spur formation moderate bilateral facet hypertrophy L2-L3, L3-L4, L5-S1 Disc bulge and bilateral facet and ligamentum hypertrophy --> severe spinal canal stenosis 06/04/18 12:51 call placed to pt PMD and pain management <Lyudmila Acosta - Last Filed: 06/04/18 13:02> *DC/Admit/Observation/Transfer - Attestations Scribe Attestion: 06/04/18 09:36 Documentation prepared by Marisa Larson, acting as ophthalmic medical assistant for Lyudmila Acosta MD. <Marisa Larson - Last Filed: 06/04/18 12:42> - Discharge Dispostion Decision to Admit order: No <Lyudmila Acosta - Last Filed: 06/04/18 13:02> Diagnosis at time of Disposition: Spinal stenosis of lumbar region at multiple levels - Discharge Dispostion Disposition: HOME Condition at time of disposition: Stable - Referrals Referrals: Mago Buchanan MD [Primary Care Provider] - Tin Lucas MD [Staff Physician] - - Patient Instructions Printed Discharge Instructions: DI for Spinal Stenosis, DI for Arthritis Additional Instructions: Thank you for coming in to the ER today Please be sure to follow up with Dr Buchanan Please also follow up with Dr. Lucas please take pain medications as prescribed Please return to the Er for any other concerns or complaints - Post Discharge Activity
[2018-06-04] MEDS ORDERED: METHOCARBAMOL 500 MG TABLET ONE (08:45)
[2018-06-04] MEDS ORDERED: METHOCARBAMOL 500 MG TABLET PO ONE (08:53)
--- NOTE | 2018-06-04 12:06 | PDOC ---
History of Present Illness - General Chief Complaint: Pain Stated Complaint: LEFT LEG PAIN Time Seen by Provider: 06/04/18 08:02 Past History - Past Medical History Allergies/Adverse Reactions: Allergies Allergy/AdvReac Type Severity Reaction Status Date / Time levofloxacin [From Levaquin] Allergy Mild Rash Verified 06/04/18 07:11 Penicillins Allergy Mild Rash Verified 06/04/18 07:11 Home Medications: Ambulatory Orders Atorvastatin Ca [Lipitor] 10 mg PO HS 05/27/17 Canagliflozin [Invokana] 100 mg PO DAILY 05/27/17 Diazepam [Valium] 5 mg PO Q8H PRN #12 tablet MDD 20 05/27/17 Glimepiride [Amaryl -] 4 mg PO DAILY 05/27/17 Insulin Lispro Protamin/Lispro [Humalog Mix 75-25 Kwikpen] 100 unit SQ BID 05/27 Metformin HCl [Glucophage] 1,000 mg PO BID 05/27/17 Valsartan/Hydrochlorothiazide [Valsartan-Hctz 160-25 mg Tab] 1 tab PO DAILY Ibuprofen 800 mg PO TID #30 tablet 10/12/17 COPD: No DVT: No Diabetes: Yes HTN: Yes Hypercholesterolemia: Yes Thyroid Disease: No - Immunization History Immunization Up to Date: Yes - Suicide/Smoking/Psychosocial Hx Smoking Status: No Smoking History: Never smoked Have you smoked in the past 12 months: No Number of Cigarettes Smoked Daily: 0 Information on smoking cessation initiated: No Hx Alcohol Use: No Drug/Substance Use Hx: No Substance Use Type: None Hx Substance Use Treatment: No *Physical Exam - Vital Signs Last Vital Signs Temp Pulse Resp BP Pulse Ox 98.0 F 77 18 142/72 100 06/04/18 07:11 06/04/18 07:11 06/04/18 07:11 06/04/18 07:11 06/04/18 07:11 ED Treatment Course - Medications Given in the ED: ED Medications Discontinued Medications Generic Name Dose Route Start Last Admin Trade Name Freq PRN Reason Stop Dose Admin Ibuprofen 600 mg 06/04/18 08:41 06/04/18 08:51 Motrin - PO 06/04/18 08:42 600 mg ONCE ONE Administration Methocarbamol 500 mg 06/04/18 08:53 06/04/18 08:51 Robaxin - PO 06/04/18 08:54 500 mg ONCE ONE Administration *DC/Admit/Observation/Transfer - Discharge Dispostion Decision to Admit order: Yes - Referrals Referrals: Mago Buchanan MD [Primary Care Provider] - - Patient Instructions - Post Discharge Activity
[2018-06-04 13:25] VITALS: BP 166/79; PULSE 61; TEMP 98.7
[2018-06-04] MEDS ORDERED: METHOCARBAMOL 500 MG TABLET PO SCH (14:00)
== END 2018-06-04 13:24 | disposition home or self-care (01) ==
LOC: JER 07:05
DX: M48.061 Spinal stenosis, lumbar region without neurogenic claudication (principal); I10 Essential (primary) hypertension; E78.00 Pure hypercholesterolemia, unspecified; E11.9 Type 2 diabetes mellitus without complications; Z79.4 Long term (current) use of insulin; Z79.84 Long term (current) use of oral hypoglycemic drugs; M54.9 Dorsalgia, unspecified; G89.29 Other chronic pain
CPT/HCPCS: 72131-TC; 73523-TC-FY; 73552-TC-LT-FY; 99281-25

== ENCOUNTER 2022-03-12 02:09 | Observation (INO) | payer OTHER, MEDICARE ==
[2022-03-12] MEDS ORDERED: ONDANSETRON 4 MG/2 ML VIAL ONE (02:18)
[2022-03-12 02:19] VITALS: BMI 28.6
[2022-03-12] MEDS ORDERED: METOCLOPRAMIDE HCL INJECTION 10 MG/2 ML VIAL IVPUSH ONE (02:24)
[2022-03-12] MEDS ORDERED: METOCLOPRAMIDE HCL INJECTION 10 MG/2 ML VIAL ONE (02:28)
[2022-03-12 02:54] LABS: BASO % 0.4 % (0-2.0); EOS % 1.2 % (0-4.5); HEMATOCRIT 36.6 % (32.4-45.2); HEMOGLOBIN 12.1 GM/dL (10.7-15.3); LYMPH % 25.2 % (8-40); MCHC 33.2 g/dl (32.0-36.0); MEAN CELL VOLUME 84.5 fl (80-96); MEAN PLT VOLUME 8.2 fl (7.5-11.1); MONO % 7.7 % (3.8-10.2); NEUT % 65.5 % (42.8-82.8); PLATELET COUNT 175 10^3/uL (134-434); RBC 4.33 M/mm3 (3.60-5.2); RDW 14.8 % (11.6-15.6); WHITE BLOOD COUNT 4.4 K/mm3 (4.0-10.0)
[2022-03-12] MEDS ORDERED: LOSARTAN 50MG/HCTZ 12.5MG 1 TAB PO ONE (04:07)
[2022-03-12 04:08] LABS: ALBUMIN 3.8 g/dl (3.4-5.0); CALCIUM 8.9 mg/dL (8.5-10.1)
[2022-03-12 04:10] LABS: CREATININE 0.8 mg/dL (0.55-1.3)
[2022-03-12 04:10] LABS: EPI CELLS 2 /uL (0-25.1); HYALINE CASTS 0 /uL (0-3.1); URINE APPEARANCE CLEAR; URINE BACTERIA 6 /uL (0-1359); URINE BILIRUBIN NEGATIVE (NEGATIVE); URINE COLOR YELLOW; URINE GLUCOSE (UA) 1+ (NEGATIVE); URINE KETONE NEGATIVE (NEGATIVE); URINE LEUK ESTERASE NEGATIVE (NEGATIVE); URINE NITRITE NEGATIVE (NEGATIVE); URINE PROTEIN 1+ (NEGATIVE); URINE RBC 3 /uL (0-23.9); URINE UROBILINOGEN 0.2 mg/dL (0.2-1.0); URINE WBC 1 /uL (0-25.8)
[2022-03-12 04:12] LABS: BILIRUBIN,TOTAL 0.3 mg/dL (0.2-1); TOT PROT 7.1 g/dl (6.4-8.2)
[2022-03-12] MEDS ORDERED: hydrALAZINE HCL 20 MG/ML VIAL IVPUSH ONE (04:32)
[2022-03-12] MEDS ORDERED: hydrALAZINE HCL 20 MG/ML VIAL ONE (04:38)
[2022-03-12] MEDS ORDERED: LIDOCAINE 5% TOPICAL PATCH TP PRN (09:32)
[2022-03-12] MEDS ORDERED: METHOCARBAMOL 500 MG TABLET PO PRN (09:32)
[2022-03-12] MEDS ORDERED: ACETAMINOPHEN 325 MG TABLET (FP) PO PRN (09:35)
[2022-03-12] MEDS ORDERED: HYDROCHLOROTHIAZIDE 25 MG TABLET (FP) ONE (09:55)
[2022-03-12] MEDS ORDERED: VALSARTAN 80 MG TABLET ONE (09:55)
[2022-03-12] MEDS ORDERED: ENOXAPARIN NA (PORCINE) 40 MG/0.4 ML DISP.SYRIN SQ ONE (09:55)
[2022-03-12] MEDS ORDERED: amLODIPine BESYLATE 5 MG TABLET (FP) ONE (09:55)
[2022-03-12] MEDS ORDERED: PATIENT'S OWN MEDICATION (NON-FORMULARY) (Valsartan/Hydrochlorothiazide [Valsartan-Hctz 16 PO SCH (10:00)
[2022-03-12] MEDS: amLODIPine BESYLATE 5 MG TABLET (FP) PO SCH (10:02)
[2022-03-12] MEDS: VALSARTAN 160 MG TABLET PO SCH (10:02)
[2022-03-12] MEDS: ENOXAPARIN NA (PORCINE) 40 MG/0.4 ML DISP.SYRIN SQ SCH (10:02)
[2022-03-12] MEDS: HYDROCHLOROTHIAZIDE 25 MG TABLET (FP) PO SCH (10:02)
[2022-03-12] MEDS: INSULIN SLIDING SCALE (NOVOLOG) 1 VIAL SQ SCH ×3 (12:40→22:46)
[2022-03-12] MEDS ORDERED: ATORVASTATIN CA 10 MG TABLET (FP) PO SCH (22:00)
[2022-03-12] MEDS ORDERED: LIDOCAINE PATCH REMOVAL MC PRN (22:00)
[2022-03-13 06:59] LABS: HEMATOCRIT 37.5 % (32.4-45.2); HEMOGLOBIN 12.4 GM/dL (10.7-15.3); MCH 28.2 pg (25.7-33.7); MEAN CELL VOLUME 85.4 fl (80-96); MEAN PLT VOLUME 8.2 fl (7.5-11.1); PLATELET COUNT 191 10^3/uL (134-434); RBC 4.39 M/mm3 (3.60-5.2); RDW 14.7 % (11.6-15.6); WHITE BLOOD COUNT 5.8 K/mm3 (4.0-10.0)
[2022-03-13 07:35] LABS: BLOOD UREA NITROGEN 32.1 mg/dL (7-18); CALCIUM 9.2 mg/dL (8.5-10.1)
[2022-03-13 07:36] LABS: CHOLESTEROL 119 mg/dL (50-200); TRIGLYCERIDES 75 mg/dL (0-150)
[2022-03-13 07:37] LABS: LDL CHOLESTEROL (ONLY SJRH) 55 mg/dL (5-100)
[2022-03-13 07:38] LABS: CREATININE 1.2 mg/dL (0.55-1.3)
[2022-03-13 07:39] LABS: HDL CHOLESTEROL 58 mg/dL (40-60)
[2022-03-13 07:40] LABS: BILIRUBIN,TOTAL 0.6 mg/dL (0.2-1); TOT PROT 7.3 g/dl (6.4-8.2)
[2022-03-13] MEDS: INSULIN SLIDING SCALE (NOVOLOG) 1 VIAL SQ SCH ×2 (07:52→12:38)
[2022-03-13] MEDS: HYDROCHLOROTHIAZIDE 25 MG TABLET (FP) PO SCH (09:26)
[2022-03-13] MEDS: amLODIPine BESYLATE 5 MG TABLET (FP) PO SCH (09:26)
[2022-03-13] MEDS: VALSARTAN 160 MG TABLET PO SCH (09:26)
[2022-03-13] MEDS: ENOXAPARIN NA (PORCINE) 40 MG/0.4 ML DISP.SYRIN SQ SCH (09:26)
[2022-03-13] MEDS ORDERED: metFORMIN HCL 500 MG TABLET (FP) PO SCH (10:00)
[2022-03-13 15:12] VITALS: BP 125/65; PULSE 89; TEMP 98.9
== END 2022-03-13 16:30 | disposition home or self-care (01) ==
LOC: JER 02:09 → JERBED 02:55 → J4W 20:54
PROVIDERS: ADMIT Internal Medicine; ATTEND Internal Medicine
PROC: 3E033GC Introduction of Other Therapeutic Substance into Peripheral Vein, Percutaneous Approach (ICD-10-PCS; principal; 2022-03-12)
PROC: 3E013VG Introduction of Insulin into Subcutaneous Tissue, Percutaneous Approach (ICD-10-PCS; 2022-03-12)
DX: E16.0 Drug-induced hypoglycemia without coma (principal); E87.1 Hypo-osmolality and hyponatremia; G89.29 Other chronic pain; E78.00 Pure hypercholesterolemia, unspecified; M48.061 Spinal stenosis, lumbar region without neurogenic claudication; Z88.8 Allergy status to other drugs, medicaments and biological substances; Z88.0 Allergy status to penicillin
CPT/HCPCS: 0241U-QW; 36415; 70450-TC; 71045-TC-FY; 80053; 80061; 81003; 82962; 83036; 84443; 84484; 85025; 85027; 87086; 93005; 93010; 96372; 96374; 96375; 99285-25; G0378

== ENCOUNTER 2022-08-04 04:46 | Emergency (ER) | payer OTHER, MEDICARE ==
[2022-08-04 04:59] VITALS: BP 180/75; PULSE 62; RESP 17; TEMP 98.1; BMI 28.3
[2022-08-04] MEDS ORDERED: diazePAM 5 MG TABLET PO ONE (05:08)
[2022-08-04] MEDS ORDERED: diazePAM 2 MG TABLET PO ONE (05:09)
[2022-08-04] MEDS ORDERED: diazePAM 2 MG TABLET ONE (05:22)
== END 2022-08-04 05:54 | disposition home or self-care (01) ==
LOC: JER 04:46
DX: G25.81 Restless legs syndrome (principal)
CPT/HCPCS: 99283-25

== ENCOUNTER 2022-09-14 04:29 | Day surgery (SDC) | payer OTHER, MEDICARE ==
[2022-09-12 13:33] VITALS: BMI 27.7
[~2022-09-14 04:29] MED LIST: ACETAMINOPHEN 325 MG TABLET (FP) PO PRN; BSS (NA/CA/MG/K) BALANCED SALT SOLUTION OPHTH SOLN 15 ML BOTTLE OS ONE; CHONDROITIN SU A/HYALUR SOD 1 KIT IO ONE; EPINEPHrine/PF 1 MG/1 ML (1:1,000) AMPULE SQ ONE; LIDOCAINE 1% P/F 10 MG/ML VIAL PNB ONE; OFLOXACIN 0.3% OPHTHALMIC SOLUTION 5 ML BOTTLE OP SCH; POVIDONE-IODINE 5% OPHTHALMIC PREP 30 ML SOLUTION OS ONE; TETRACAINE 0.5% OPHTH SOLN 2 ML BOTTLE OS ONE
[2022-09-14] MEDS ORDERED: EPINEPHrine/PF 1 MG/1 ML (1:1,000) AMPULE ONE (07:24)
[2022-09-14] MEDS ORDERED: VANCOMYCIN 500 MG VIAL (RESTRICTED TO ID ONLY) ONE (07:24)
[2022-09-14] MEDS ORDERED: LIDOCAINE HCL/PF 1% SDV 5ML VIAL ONE (07:25)
[2022-09-14] MEDS ORDERED: POVIDONE-IODINE 5% OPHTHALMIC PREP 30 ML SOLUTION ONE (07:25)
[2022-09-14] MEDS ORDERED: TETRACAINE 0.5% OPHTH SOLN 2 ML BOTTLE ONE (07:25)
[2022-09-14] MEDS ORDERED: PHENYLEPHRINE 2.5% OPHTH SOLN 15 ML BOTTLE ONE (08:51)
[2022-09-14] MEDS ORDERED: TROPICAMIDE 1% OPHTH SOLN 15 ML BOTTLE ONE (08:51)
[2022-09-14] MEDS ORDERED: KETOROLAC TROMETHAMINE 0.5% EYE DROP 1 DROP DROPS ONE (08:51)
[2022-09-14] MEDS ORDERED: CYCLOPENTOLATE HCL 1% OPHTH SOLN 2 ML BOTTLE ONE (08:51)
[2022-09-14] MEDS ORDERED: OFLOXACIN 0.3% OPHTHALMIC SOLUTION 5 ML BOTTLE ONE (08:52)
[2022-09-14] MEDS: CYCLOPENTOLATE HCL 1% OPHTH SOLN 2 ML BOTTLE OP SCH ×3 (09:05→09:15)
[2022-09-14] MEDS: PHENYLEPHRINE 2.5% OPHTH SOLN 15 ML BOTTLE OP SCH ×3 (09:05→09:15)
[2022-09-14] MEDS: KETOROLAC TROMETHAMINE 0.5% EYE DROP 1 DROP DROPS OP SCH ×3 (09:05→09:15)
[2022-09-14] MEDS: TROPICAMIDE 1% OPHTH SOLN 15 ML BOTTLE OP SCH ×3 (09:05→09:15)
[2022-09-14] MEDS: POLYMYXIN B SULFATE/TMP 10 ML OPHTHALMIC SOLUTION OS SCH ×3 (09:35→09:45)
[2022-09-14] MEDS ORDERED: ONDANSETRON 4 MG/2 ML VIAL ONE ×3 (10:47→10:48)
[2022-09-14] MEDS ORDERED: FENTANYL CITRATE/PF 50 MCG/ML VIAL ONE (10:47)
[2022-09-14] MEDS ORDERED: TETRACAINE 0.5% OPHTH SOLN 2 ML BOTTLE OS ONE (11:00)
[2022-09-14] MEDS ORDERED: POVIDONE-IODINE 5% OPHTHALMIC PREP 30 ML SOLUTION OS ONE (11:01)
[2022-09-14] MEDS ORDERED: BSS (NA/CA/MG/K) BALANCED SALT SOLUTION OPHTH SOLN 15 ML BOTTLE OS ONE (11:07)
[2022-09-14] MEDS ORDERED: LIDOCAINE HCL/PF 2% SDV 5ML VIAL PNB ONE (11:10)
[2022-09-14] MEDS ORDERED: LIDOCAINE 1% P/F 10 MG/ML VIAL PNB ONE (11:12)
[2022-09-14] MEDS ORDERED: CHONDROITIN SU A/HYALUR SOD 1 KIT IO ONE (11:13)
[2022-09-14] MEDS ORDERED: MIDAZOLAM HCL 2 MG/2 ML SINGLE DOSE VIAL ONE (11:17)
[2022-09-14] MEDS ORDERED: EPINEPHrine/PF 1 MG/1 ML (1:1,000) AMPULE SQ ONE (11:20)
[2022-09-14 13:05] VITALS: BP 131/61; PULSE 54; RESP 18; TEMP 98.8
== END 2022-09-14 12:35 | disposition home or self-care (01) ==
LOC: JASU-SURG 04:29
PROVIDERS: ATTEND Ophthalmology
PROC: 08RK3JZ Replacement of Left Lens with Synthetic Substitute, Percutaneous Approach (ICD-10-PCS; principal; 2022-09-14 11:00)
DX: H26.9 Unspecified cataract (principal)
CPT/HCPCS: 82962; V2632

== ENCOUNTER 2022-11-15 16:17 | Emergency (ER) | payer OTHER, MEDICARE ==
[2022-11-15 16:31] VITALS: RESP 18; TEMP 97.9; BMI 30.1
[2022-11-15] MEDS ORDERED: METOCLOPRAMIDE HCL INJECTION 10 MG/2 ML VIAL IVPB ONE (17:20)
[2022-11-15] MEDS ORDERED: ACETAMINOPHEN 1000 MG/100 ML BAG IVPB ONE (17:32)
[2022-11-15] MEDS ORDERED: METOCLOPRAMIDE HCL INJECTION 10 MG/2 ML VIAL ONE (17:43)
[2022-11-15] MEDS ORDERED: ACETAMINOPHEN INJECTION 100 ML IVPB ONE (17:48)
[2022-11-15 18:31] LABS: BASO % 0.2 % (0-2.0); EOS % 0.7 % (0-4.5); LYMPH % 16.6 % (8-40); MCH 28.8 pg (25.7-33.7); MCHC 33.2 g/dl (32.0-36.0); MEAN CELL VOLUME 86.9 fl (80-96); MEAN PLT VOLUME 8.5 fl (7.5-11.1); MONO % 6.9 % (3.8-10.2); NEUT % 75.6 % (42.8-82.8); PLATELET COUNT 175 10^3/uL (134-434); RBC 4.15 M/mm3 (3.60-5.2); RDW 14.6 % (11.6-15.6); WHITE BLOOD COUNT 6.9 K/mm3 (4.0-10.0)
[2022-11-15 18:51] LABS: CALCIUM 9.3 mg/dL (8.5-10.1)
[2022-11-15 18:52] LABS: ALBUMIN 3.8 g/dl (3.4-5.0); BLOOD UREA NITROGEN 31.1 mg/dL (7-18)
[2022-11-15 18:55] LABS: CREATININE 0.9 mg/dL (0.55-1.3)
[2022-11-15 18:57] LABS: BILIRUBIN,TOTAL 0.3 mg/dL (0.2-1); TOT PROT 7.3 g/dl (6.4-8.2)
[2022-11-15 20:06] VITALS: PULSE 61
[2022-11-15 21:13] VITALS: BP 169/81
== END 2022-11-15 21:18 | disposition home or self-care (01) ==
LOC: JER 16:17
PROC: 3E033GC Introduction of Other Therapeutic Substance into Peripheral Vein, Percutaneous Approach (ICD-10-PCS; principal; 2022-11-15)
DX: R42 Dizziness and giddiness (principal)
CPT/HCPCS: 36415; 70450-TC; 71046-TC-FY; 80053; 82962; 84484; 85025; 93005; 93010; 99285-25

== ENCOUNTER 2022-11-16 15:00 | Observation (INO) | payer OTHER, MEDICARE ==
[2022-11-16 15:14] VITALS: BMI 31.8
[2022-11-16] MEDS ORDERED: MECLIZINE HCL 25 MG TABLET (FP) PO ONE (15:38)
[2022-11-16 16:14] LABS: BASO % 0.4 % (0-2.0); EOS % 0.7 % (0-4.5); HEMATOCRIT 36.2 % (32.4-45.2); HEMOGLOBIN 11.8 GM/dL (10.7-15.3); LYMPH % 22.2 % (8-40); MCH 28.4 pg (25.7-33.7); MCHC 32.8 g/dl (32.0-36.0); MEAN CELL VOLUME 86.7 fl (80-96); MEAN PLT VOLUME 8.5 fl (7.5-11.1); MONO % 7.8 % (3.8-10.2); NEUT % 68.9 % (42.8-82.8); PLATELET COUNT 190 10^3/uL (134-434); RBC 4.17 M/mm3 (3.60-5.2); RDW 14.4 % (11.6-15.6); WHITE BLOOD COUNT 4.7 K/mm3 (4.0-10.0)
[2022-11-16] MEDS ORDERED: MECLIZINE HCL 25 MG TABLET (FP) ONE (16:17)
[2022-11-16 16:42] LABS: BLOOD UREA NITROGEN 26.2 mg/dL (7-18); CALCIUM 9.9 mg/dL (8.5-10.1)
[2022-11-16 16:43] LABS: ALBUMIN 3.8 g/dl (3.4-5.0)
[2022-11-16 16:46] LABS: CREATININE 0.9 mg/dL (0.55-1.3)
[2022-11-16 16:47] LABS: BILIRUBIN,TOTAL 0.6 mg/dL (0.2-1); TOT PROT 7.2 g/dl (6.4-8.2)
[2022-11-16] MEDS ORDERED: DOCUSATE SODIUM 100 MG CAPSULE (FP) PO PRN (19:45)
[2022-11-16] MEDS ORDERED: ACETAMINOPHEN 1000 MG/100 ML BAG IVPB PRN (19:48)
[2022-11-16 21:08] LABS: PH,URINE 5.5 (5.0-8.0); URINE APPEARANCE CLEAR; URINE BILIRUBIN NEGATIVE (NEGATIVE); URINE COLOR YELLOW; URINE GLUCOSE (UA) TRACE (NEGATIVE); URINE KETONE 1+ (NEGATIVE); URINE LEUK ESTERASE NEGATIVE (NEGATIVE); URINE NITRITE NEGATIVE (NEGATIVE); URINE PROTEIN TRACE (NEGATIVE); URINE UROBILINOGEN 0.2 mg/dL (0.2-1.0)
[2022-11-16] MEDS: INSULIN SLIDING SCALE (NOVOLOG) 1 VIAL SQ SCH (23:50)
[2022-11-17] MEDS: INSULIN SLIDING SCALE (NOVOLOG) 1 VIAL SQ SCH ×4 (06:15→21:09)
[2022-11-17 07:29] LABS: BASO % 0.5 % (0-2.0); EOS % 1.6 % (0-4.5); HEMATOCRIT 34.5 % (32.4-45.2); HEMOGLOBIN 11.5 GM/dL (10.7-15.3); LYMPH % 41.3 % (8-40); MCH 28.9 pg (25.7-33.7); MCHC 33.4 g/dl (32.0-36.0); MEAN CELL VOLUME 86.5 fl (80-96); MEAN PLT VOLUME 8.6 fl (7.5-11.1); MONO % 10.2 % (3.8-10.2); NEUT % 46.4 % (42.8-82.8); PLATELET COUNT 196 10^3/uL (134-434); RBC 3.99 M/mm3 (3.60-5.2); RDW 14.2 % (11.6-15.6); WHITE BLOOD COUNT 4.9 K/mm3 (4.0-10.0)
[2022-11-17 07:34] LABS: INR 1.08 (0.83-1.09); PROTHROMBIN TIME (PATIENT) 12.5 SEC (9.7-13.0)
[2022-11-17 07:37] LABS: ACTIVATED PTT 27.2 SECONDS (25.2-36.5)
[2022-11-17 07:48] LABS: CALCIUM 9.4 mg/dL (8.5-10.1)
[2022-11-17 07:49] LABS: BLOOD UREA NITROGEN 23.5 mg/dL (7-18); MAGNESIUM 1.8 mg/dL (1.8-2.4)
[2022-11-17 07:52] LABS: CREATININE 0.8 mg/dL (0.55-1.3); PHOSPHOROUS 3.2 mg/dL (2.5-4.9)
[2022-11-17] MEDS: HYDROCHLOROTHIAZIDE 25 MG TABLET (FP) PO SCH (09:18)
[2022-11-17] MEDS: amLODIPine BESYLATE 5 MG TABLET (FP) PO SCH (09:19)
[2022-11-17] MEDS: METOPROLOL TARTRATE 25 MG TABLET (FP) PO SCH ×2 (09:19→21:09)
[2022-11-17] MEDS: VALSARTAN 160 MG TABLET PO SCH (09:19)
[2022-11-17] MEDS: PREGABALIN 75 MG CAPSULE PO SCH ×2 (09:19→21:09)
[2022-11-17] MEDS ORDERED: MECLIZINE HCL 12.5 MG TABLET PO PRN (09:25)
[2022-11-17] MEDS ORDERED: amLODIPine BESYLATE 5 MG TABLET (FP) PO SCH (10:00)
[2022-11-17] MEDS: SODIUM CHLORIDE 0.45% 1,000 ML IV SCH (14:14)
[2022-11-17] MEDS ORDERED: ACETAMINOPHEN 325 MG TABLET (FP) PO PRN (19:45)
[2022-11-17] MEDS ORDERED: ROSUVASTATIN CA 10 MG TABLET PO SCH (22:00)
[2022-11-17] MEDS ORDERED: INSULIN (NOVOLOG MIX 70/30) 100 UNITS/ML MDV SQ SCH (22:00)
[2022-11-18 03:52] VITALS: RESP 18
[2022-11-18] MEDS: INSULIN SLIDING SCALE (NOVOLOG) 1 VIAL SQ SCH ×2 (06:08→11:09)
[2022-11-18] MEDS: SODIUM CHLORIDE 0.45% 1,000 ML IV SCH (06:09)
[2022-11-18] MEDS ORDERED: INSULIN (NOVOLOG MIX 70/30) 100 UNITS/ML MDV SQ SCH (07:00)
[2022-11-18] MEDS: METOPROLOL TARTRATE 25 MG TABLET (FP) PO SCH (09:50)
[2022-11-18] MEDS: PREGABALIN 75 MG CAPSULE PO SCH (09:50)
[2022-11-18] MEDS: HYDROCHLOROTHIAZIDE 25 MG TABLET (FP) PO SCH (09:50)
[2022-11-18] MEDS: VALSARTAN 160 MG TABLET PO SCH (09:50)
[2022-11-18] MEDS: amLODIPine BESYLATE 5 MG TABLET (FP) PO SCH (09:50)
[2022-11-18 09:55] VITALS: TEMP 99
[2022-11-18] MEDS ORDERED: ENOXAPARIN NA (PORCINE) 40 MG/0.4 ML DISP.SYRIN SQ SCH (10:00)
[2022-11-18 13:43] VITALS: BP 125/60; PULSE 62
== END 2022-11-18 15:05 | disposition home or self-care (01) ==
LOC: JER 15:00 → JERBED 19:44 → J4W 23:42
PROVIDERS: ADMIT Internal Medicine; ATTEND Internal Medicine
PROC: 3E033NZ Introduction of Analgesics, Hypnotics, Sedatives into Peripheral Vein, Percutaneous Approach (ICD-10-PCS; principal; 2022-11-16)
PROC: 3E023GC Introduction of Other Therapeutic Substance into Muscle, Percutaneous Approach (ICD-10-PCS; 2022-11-16)
PROC: 3E013VG Introduction of Insulin into Subcutaneous Tissue, Percutaneous Approach (ICD-10-PCS; 2022-11-16)
PROC: 3E0337Z Introduction of Electrolytic and Water Balance Substance into Peripheral Vein, Percutaneous Approach (ICD-10-PCS; 2022-11-16)
DX: S09.90XA Unspecified injury of head, initial encounter (principal); R42 Dizziness and giddiness; R26.81 Unsteadiness on feet; E11.9 Type 2 diabetes mellitus without complications; I10 Essential (primary) hypertension; E78.5 Hyperlipidemia, unspecified; G89.29 Other chronic pain; F40.240 Claustrophobia; R29.6 Repeated falls; Z88.0 Allergy status to penicillin; W18.39XA Other fall on same level, initial encounter; Y93.89 Activity, other specified; Y92.512 Supermarket, store or market as the place of occurrence of the external cause; Z88.8 Allergy status to other drugs, medicaments and biological substances
CPT/HCPCS: 0241U-QW; 36415; 70450-TC; 71045-TC-FY; 72125-TC; 80048; 80053; 81003; 82962; 83036; 83735; 84100; 84439; 84443; 84484; 85025; 85610; 85730; 87086; 93005; 93010; 93880-TC; 96361; 96372; 96374; 99285-25; G0378

== ENCOUNTER 2022-11-29 23:54 | Inpatient (IN) | payer OTHER, MEDICARE ==
[2022-11-30 01:30] LABS: BASO % 0.4 % (0-2.0); EOS % 0.9 % (0-4.5); HEMATOCRIT 34.1 % (32.4-45.2); HEMOGLOBIN 11.7 GM/dL (10.7-15.3); LYMPH % 21.4 % (8-40); MCH 29.5 pg (25.7-33.7); MCHC 34.1 g/dl (32.0-36.0); MEAN CELL VOLUME 86.4 fl (80-96); MEAN PLT VOLUME 8.3 fl (7.5-11.1); MONO % 7.2 % (3.8-10.2); NEUT % 70.1 % (42.8-82.8); PLATELET COUNT 189 10^3/uL (134-434); RBC 3.95 M/mm3 (3.60-5.2); RDW 13.9 % (11.6-15.6); WHITE BLOOD COUNT 5.2 K/mm3 (4.0-10.0)
[2022-11-30] MEDS ORDERED: ACETAMINOPHEN 325 MG TABLET (FP) PO ONE (01:48)
[2022-11-30] MEDS ORDERED: ACETAMINOPHEN 325 MG TABLET (FP) ONE (02:00)
[2022-11-30 02:09] LABS: URINE APPEARANCE CLEAR; URINE BILIRUBIN NEGATIVE (NEGATIVE); URINE COLOR YELLOW; URINE GLUCOSE (UA) NEGATIVE (NEGATIVE); URINE KETONE NEGATIVE (NEGATIVE); URINE LEUK ESTERASE NEGATIVE (NEGATIVE); URINE NITRITE NEGATIVE (NEGATIVE); URINE PROTEIN NEGATIVE (NEGATIVE); URINE UROBILINOGEN 0.2 mg/dL (0.2-1.0)
[2022-11-30 03:33] LABS: ALBUMIN 3.8 g/dl (3.4-5.0); CALCIUM 9.1 mg/dL (8.5-10.1); MAGNESIUM 1.7 mg/dL (1.8-2.4)
[2022-11-30 03:38] LABS: BILIRUBIN,TOTAL 0.2 mg/dL (0.2-1); TOT PROT 7.3 g/dl (6.4-8.2)
[2022-11-30] MEDS ORDERED: SODIUM CHLORIDE 0.9% 500 ML INFUS.BAG IV ONE (03:43)
[2022-11-30] MEDS ORDERED: MAGNESIUM SULF 50% (8.12 MEQ/2 ML-1 GM VIAL) IVPB ONE (03:44)
[2022-11-30] MEDS ORDERED: MAGNESIUM SULFATE IN WATER 2 GM/50 ML IVPB IVPB ONE (04:01)
[2022-11-30 05:59] LABS: CALCIUM 8.7 mg/dL (8.5-10.1)
[2022-11-30 06:00] LABS: BLOOD UREA NITROGEN 37.8 mg/dL (7-18); MAGNESIUM 2.5 mg/dL (1.8-2.4)
[2022-11-30] MEDS ORDERED: DOCUSATE SODIUM 100 MG CAPSULE (FP) PO PRN (06:24)
[2022-11-30] MEDS ORDERED: MECLIZINE HCL 12.5 MG TABLET PO PRN (06:33)
[2022-11-30 07:30] LABS: MAGNESIUM 2.3 mg/dL (1.8-2.4)
[2022-11-30 07:35] LABS: PHOSPHOROUS 3.2 mg/dL (2.5-4.9)
[2022-11-30 07:35] LABS: PHOSPHOROUS 3.3 mg/dL (2.5-4.9)
[2022-11-30 07:35] LABS: PHOSPHOROUS 3.6 mg/dL (2.5-4.9)
[2022-11-30] MEDS ORDERED: ACETAMINOPHEN 325 MG TABLET (FP) PO PRN (08:00)
[2022-11-30] MEDS: INSULIN SLIDING SCALE (NOVOLOG) 1 VIAL SQ SCH ×4 (08:40→21:33)
[2022-11-30] MEDS ORDERED: PREGABALIN 25 MG CAPSULE ONE ×2 (09:01→21:00)
[2022-11-30] MEDS ORDERED: amLODIPine BESYLATE 5 MG TABLET (FP) ONE (09:01)
[2022-11-30] MEDS: amLODIPine BESYLATE 5 MG TABLET (FP) PO SCH (09:04)
[2022-11-30] MEDS: PREGABALIN 75 MG CAPSULE PO SCH ×2 (09:04→21:33)
[2022-11-30] MEDS ORDERED: SODIUM CHLORIDE 1,000 ML IV SCH (13:30)
[2022-11-30] MEDS ORDERED: ATORVASTATIN CA 10 MG TABLET (FP) ONE (21:00)
[2022-11-30] MEDS ORDERED: PREGABALIN 50 MG CAPSULE ONE (21:00)
[2022-11-30] MEDS: ROSUVASTATIN CA 10 MG TABLET PO SCH (21:33)
[2022-12-01 02:05] VITALS: BMI 32.4
[2022-12-01] MEDS: INSULIN SLIDING SCALE (NOVOLOG) 1 VIAL SQ SCH ×4 (06:10→22:11)
[2022-12-01 07:53] LABS: CALCIUM 8.5 mg/dL (8.5-10.1)
[2022-12-01 07:54] LABS: ALBUMIN 3.2 g/dl (3.4-5.0); BLOOD UREA NITROGEN 27.8 mg/dL (7-18)
[2022-12-01 07:57] LABS: CREATININE 0.7 mg/dL (0.55-1.3)
[2022-12-01 07:59] LABS: BILIRUBIN,TOTAL 0.2 mg/dL (0.2-1); TOT PROT 6.1 g/dl (6.4-8.2)
[2022-12-01 08:56] LABS: BASO % 0.4 % (0-2.0); EOS % 2.4 % (0-4.5); HEMATOCRIT 30.8 % (32.4-45.2); HEMOGLOBIN 10.4 GM/dL (10.7-15.3); LYMPH % 37.9 % (8-40); MCH 29.2 pg (25.7-33.7); MCHC 33.7 g/dl (32.0-36.0); MEAN CELL VOLUME 86.9 fl (80-96); MEAN PLT VOLUME 8.9 fl (7.5-11.1); MONO % 10.7 % (3.8-10.2); NEUT % 48.6 % (42.8-82.8); PLATELET COUNT 176 10^3/uL (134-434); RBC 3.55 M/mm3 (3.60-5.2); RDW 14.3 % (11.6-15.6); WHITE BLOOD COUNT 4.2 K/mm3 (4.0-10.0)
[2022-12-01] MEDS: PREGABALIN 75 MG CAPSULE PO SCH ×2 (11:13→21:13)
[2022-12-01] MEDS: amLODIPine BESYLATE 5 MG TABLET (FP) PO SCH (11:13)
[2022-12-01] MEDS ORDERED: MECLIZINE HCL 25 MG TABLET (FP) PO PRN (14:02)
[2022-12-01] MEDS: metFORMIN HCL 500 MG TABLET (FP) PO SCH (21:12)
[2022-12-01] MEDS: ROSUVASTATIN CA 10 MG TABLET PO SCH (21:13)
[2022-12-01] MEDS: INSULIN (NOVOLOG MIX 70/30) 100 UNITS/ML MDV SQ SCH (21:16)
[2022-12-02] MEDS: INSULIN SLIDING SCALE (NOVOLOG) 1 VIAL SQ SCH ×4 (06:19→21:40)
[2022-12-02] MEDS: INSULIN (NOVOLOG MIX 70/30) 100 UNITS/ML MDV SQ SCH ×2 (09:32→21:39)
[2022-12-02] MEDS: amLODIPine BESYLATE 5 MG TABLET (FP) PO SCH (09:33)
[2022-12-02] MEDS: PREGABALIN 75 MG CAPSULE PO SCH ×2 (09:33→21:39)
[2022-12-02] MEDS: metFORMIN HCL 500 MG TABLET (FP) PO SCH ×2 (09:33→21:39)
[2022-12-02] MEDS ORDERED: PATIENT'S OWN MEDICATION (NON-FORMULARY) (Valsartan/Hydrochlorothiazide [Valsartan-Hctz 16 PO SCH (13:15)
[2022-12-02] MEDS: METOPROLOL TARTRATE 25 MG TABLET (FP) PO SCH (21:01)
[2022-12-02] MEDS: ROSUVASTATIN CA 10 MG TABLET PO SCH (21:39)
[2022-12-02] MEDS ORDERED: amLODIPine BESYLATE 5 MG TABLET (FP) PO STA (22:07)
[2022-12-03] MEDS: INSULIN SLIDING SCALE (NOVOLOG) 1 VIAL SQ SCH ×4 (06:02→21:17)
[2022-12-03] MEDS ORDERED: VALSARTAN 160 MG TABLET PO SCH ×2 (10:00→10:25)
[2022-12-03] MEDS ORDERED: HYDROCHLOROTHIAZIDE 25 MG TABLET (FP) PO SCH (10:00)
[2022-12-03] MEDS: METOPROLOL TARTRATE 25 MG TABLET (FP) PO SCH ×2 (10:08→21:17)
[2022-12-03] MEDS: PREGABALIN 75 MG CAPSULE PO SCH ×2 (10:08→21:15)
[2022-12-03] MEDS: amLODIPine BESYLATE 10 MG TABLET (FP) PO SCH (10:09)
[2022-12-03] MEDS: metFORMIN HCL 500 MG TABLET (FP) PO SCH ×2 (10:09→21:16)
[2022-12-03] MEDS ORDERED: INSULIN (NOVOLOG MIX 70/30) 100 UNITS/ML MDV SQ SCH (10:51)
[2022-12-03] MEDS: HYDROCHLOROTHIAZIDE 12.5 MG CAPSULE (FP) PO SCH (11:29)
[2022-12-03] MEDS: INSULIN (NOVOLOG MIX 70/30) 100 UNITS/ML MDV SQ SCH ×2 (17:56→21:35)
[2022-12-03] MEDS: ROSUVASTATIN CA 10 MG TABLET PO SCH (21:16)
[2022-12-03] MEDS: VALSARTAN 160 MG TABLET PO SCH (21:30)
[2022-12-04] MEDS: INSULIN SLIDING SCALE (NOVOLOG) 1 VIAL SQ SCH ×3 (06:16→16:53)
[2022-12-04 06:23] VITALS: RESP 18
[2022-12-04] MEDS: VALSARTAN 160 MG TABLET PO SCH (09:51)
[2022-12-04] MEDS: PREGABALIN 75 MG CAPSULE PO SCH (09:51)
[2022-12-04] MEDS: amLODIPine BESYLATE 10 MG TABLET (FP) PO SCH (09:51)
[2022-12-04] MEDS: METOPROLOL TARTRATE 25 MG TABLET (FP) PO SCH (09:51)
[2022-12-04] MEDS: HYDROCHLOROTHIAZIDE 12.5 MG CAPSULE (FP) PO SCH (09:51)
[2022-12-04] MEDS: metFORMIN HCL 500 MG TABLET (FP) PO SCH (09:51)
[2022-12-04 10:20] LABS: CALCIUM 8.8 mg/dL (8.5-10.1)
[2022-12-04 10:21] LABS: BLOOD UREA NITROGEN 19.6 mg/dL (7-18)
[2022-12-04 10:24] LABS: CREATININE 0.8 mg/dL (0.55-1.3)
[2022-12-04 14:53] VITALS: BP 129/57; PULSE 52; TEMP 98
== END 2022-12-04 18:05 | disposition home or self-care (01) | DRG 641 ==
LOC: JER 23:54 → JERBED 11-30 06:02 → J4S 11-30 23:35 → OBSVTOIN 12-02 13:41
PROVIDERS: ADMIT Internal Medicine; ATTEND Internal Medicine
DX: E87.1 Hypo-osmolality and hyponatremia (principal); T50.2X5A Adverse effect of carbonic-anhydrase inhibitors, benzothiadiazides and other diuretics, initial encounter; E11.65 Type 2 diabetes mellitus with hyperglycemia; I10 Essential (primary) hypertension; Y92.89 Other specified places as the place of occurrence of the external cause; E66.9 Obesity, unspecified; E78.5 Hyperlipidemia, unspecified; E78.00 Pure hypercholesterolemia, unspecified; M48.061 Spinal stenosis, lumbar region without neurogenic claudication; M48.02 Spinal stenosis, cervical region; E87.5 Hyperkalemia
CPT/HCPCS: 0241U-QW; 36415; 70450-TC; 71046-TC-FY; 80048; 80053; 81003; 82550; 82962; 83735; 84100; 84484; 85025; 87086; 93005; 93010; 93306-TC; 97116-GP; 97162-GP; 99285-25; G0378